=== PATIENT | female | born 1995 | race Caucasian/White ===

== ENCOUNTER 2018-04-16 02:39 | Emergency (ER) | payer OTHER ==
[2018-04-16] MEDS ORDERED: HYOSCYAMINE SULFATE 0.125 MG TAB PO ONE (03:25)
[2018-04-16] MEDS ORDERED: MAG HYDROX/AL HYDROX/SIMETH 30 ML UDCUP PO ONE (03:25)
[2018-04-16] MEDS ORDERED: LIDOCAINE 2% VISCOUS 15 ML UDCUP PO ONE (03:25)
[2018-04-16] MEDS ORDERED: ONDANSETRON DISINTEGRATING 4 MG TAB PO ONE (03:32)
[2018-04-16] MEDS ORDERED: ONDANSETRON DISINTEGRATING 4 MG TAB ONE (03:32)
--- NOTE | 2018-04-16 03:45 | EDPHY ---
H & P Stated Complaint: SOB Time Seen by Provider: 04/16/18 02:47 HPI/ROS: HPI The patient presents with shortness of breath and sensation of chest tightness which have been present for about the last 1 hr and getting progressively worse. The patient was drinking alcohol, approximately 2 glasses of wine tonight with friends. Several friends left to go out to the bars on the patient 's state home. She is then noticed that her chest felt tight in the center of her chest in near her epigastrium. She went to lay down and felt like she could not catch her breath. Her symptoms got progressively worse. The patient has a history of right middle lobe of her lung collapse secondary to bronchiectasis. She is being followed currently at [facility]. She has plans for an EGD next week for symptoms of GERD.. REVIEW OF SYSTEMS 10 systems were reviewed and negative with the exception of the elements mentioned in the history of present illness. PMHx: Bronchiectasis of uncertain origin, followed at [facility] Hx: Occasional alcohol, here with a friend PHYSICAL General Appearance: Alert, tearful and anxious Eyes: Pupils equal and round no pallor or injection ENT, Mouth: Mucous membranes moist Respiratory: Hyperventilating, lungs are clear bilaterally without any retractions Cardiovascular: Tachycardic rate and regular rhythm Gastrointestinal: Abdomen is soft and non-tender, no masses, bowel sounds normal Neurological: A&O, moves all extremities Skin: Warm and dry, no rashes Musculoskeletal: Neck is supple non tender Extremities: symmetrical, full range of motion Psychiatric: Patient is oriented X 3, there is no agitation Source: Patient Exam Limitations: No limitations - Personal History LMP (Females 10-55): Now Current Tetanus Diphtheria and Acellular Pertussis (TDAP): Yes - Medical/Surgical History Hx Asthma: No Hx Chronic Respiratory Disease: No Hx Diabetes: No Hx Cardiac Disease: No Hx Renal Disease: No Hx Cirrhosis: No Hx Alcoholism: No Hx HIV/AIDS: No Hx Splenectomy or Spleen Trauma: No Other PMH: toxic shock - Social History Smoking Status: Current every day smoker Constitutional: Initial Vital Signs Temperature (C) 37 C 04/16/18 02:42 Heart Rate 120 H 04/16/18 02:42 Respiratory Rate 20 04/16/18 02:42 Blood Pressure 131/77 H 04/16/18 02:42 O2 Sat (%) 98 04/16/18 02:42 O2 Delivery Mode Room Air Allergies/Adverse Reactions: No Known Allergies Allergy (Unverified 03/09/16 08:22) Medical Decision Making - Diagnostics EKG Interpretation: EKG: Complete interpretation has been separately recorded in the [facility] archive. Summary impression: Normal sinus rhythm Imaging Results: Chest x-ray two view shows no cardiomegaly, no infiltrate, no pneumothorax, interpreted by me, radiology interpretation is pending. Imaging: I viewed and interpreted images myself Differential Diagnosis: This is a 22-year-old female with known right middle lobe of her lung collapse related to bronchiectasis, followed at [facility], etiology unclear, who presents from home with chest tightness associated with shortness of breath which began several hours ago gradually in the setting of alcohol use. Here, she is tearful anxious, tachycardic. Lungs sound clear to me. In the emergency department chest x-ray was performed and was unremarkable showing no pneumothorax or mucous plugging. EKG was also normal. I reassessed the patient after this testing and she was feeling much better. She did have ongoing mild burning of her chest and I have ordered a GI cocktail for this. Patient says that she occasionally does have similar symptoms though this is more severe than usual. Patient felt much better upon my 2nd reassessment. She would like to go home. I do suspect she is suffering from GERD. I have discussed this with her and recommended that she use antacids. She is happy with this plan. She has EGD already scheduled by her primary care. - Data Points Medications Given: Discontinued Medications Al Hydroxide/Mg Hydroxide (Maalox Susp) 30 ml PO ONCE ONE Stop: 04/16/18 03:26 Last Admin: 04/16/18 03:30 Dose: 30 ml Hyoscyamine Sulfate (Levsin, Hyomax-Sl) 0.25 mg PO ONCE ONE Stop: 04/16/18 03:26 Last Admin: 04/16/18 03:30 Dose: 0.25 mg Lidocaine (Lidocaine 2% Viscous) 15 ml PO ONCE ONE Stop: 04/16/18 03:26 Last Admin: 04/16/18 03:30 Dose: 15 ml Ondansetron HCl (Zofran Odt) 4 mg PO EDNOW ONE Stop: 04/16/18 03:33 Last Admin: 04/16/18 03:33 Dose: 4 mg Departure - Departure Disposition: Home, Routine, Self-Care Clinical Impression: SOB (shortness of breath) Chest pain Qualifiers: Chest pain type: unspecified Qualified Code(s): R07.9 - Chest pain, unspecified Condition: Good Instructions: Chest Pain (ED) Additional Instructions: The cause of your pain and shortness of breath could be related to acid reflux. Because of this, I recommend you avoid spicy foods or acidic foods and alcohol. If you have the symptoms again, you can take Tums or Maalox to see if this helps things. Please follow-up with your regular doctor. Referrals: NONE *PRIMARY CARE P,. [Unknown] - As per Instructions
[2018-04-16 04:46] VITALS: BP 122/73
--- NOTE | 2018-04-16 05:30 | CPEKG ---
Test Reason : OPEN Blood Pressure : / mmHG Vent. Rate : 097 BPM Atrial Rate : 097 BPM P-R Int : 121 ms QRS Dur : 081 ms QT Int : 346 ms P-R-T Axes : 078 080 029 degrees QTc Int : 440 ms Sinus rhythm Confirmed by Katie Doherty ([id number]) on 04/16/2018 5:30:17 AM Referred By: Confirmed By:Katie Doherty
== END 2018-04-16 04:45 | disposition home or self-care (01) ==
DX: R06.02 Shortness of breath (principal); R07.9 Chest pain, unspecified; F17.200 Nicotine dependence, unspecified, uncomplicated